=== PATIENT | female | born 1970 | race Caucasian/White ===

== ENCOUNTER 2025-05-15 10:01 | Emergency (ER) | payer OTHER ==
[~2025-05-15] VITALS: Ht 162.6 cm; Wt 106.3 kg
[2025-05-15 10:05] VITALS: PULSE 88; O2SAT 99
--- NOTE | 2025-05-15 10:25 | RADIOLOGY REPORT ---
CHEST RADIOGRAPH INDICATION: rib pain three weeks right side TECHNIQUE: DI CHEST,SINGLE VIEW Comparison: None FINDINGS: The cardiac silhouette is unremarkable. The lungs demonstrate no pulmonary airspace consolidation. The pulmonary vasculature is unremarkable. There is no pleural effusion. There is no pneumothorax. IMPRESSION: No pulmonary airspace consolidation.
[2025-05-15 12:23] VITALS: BP 162/109
[2025-05-15 12:34] VITALS: RESP 8
[2025-05-15] MEDS: HYDROcodone/acetaminophen 10/325mg tab PO ONE (12:34)
[2025-05-15] MEDS: ketorolac trometh 30MG/ML vial 30 MG/ML VIAL IM ONE (12:34)
--- NOTE | 2025-05-15 12:55 | Physician Documentation ---
History of Present Illness ~ Chief Complaint: Rib pain Stated Complaint: RIB PAIN Time Seen by MD: 12:10 Primary Medical Doctor: Franklin arenas Source: patient Mode of Arrival: POV, Ambulatory Exam Limitations: no limitations HPI 54-year-old female with complaints of continued right rib pain after a fall while intoxicated 3 weeks ago continued pain with deep breathing and movement as well as palpation. Tetanus within 5 Years?: No Allergies: Coded Allergies: Penicillins (Unverified Allergy, Severe, anaphylaxis, 05/15/25) Sulfa (Sulfonamide Antibiotics) (Unverified Allergy, Severe, anaphylaxis, 05/15/25) bacitracin (Unverified Allergy, Intermediate, vaginal swelling, 05/15/25) Uncoded Allergies: PENCILLINS (Allergy, Severe, anaphylaxis, 05/15/25) Active Prescriptions See Medication Reconciliation Form. Past Medical History Past Medical History: No Pertinent History Past Surgical History: noncontributory Lives with: Family Lives In: Home Occupation: employed Review of Systems All Other Systems at this time: Reviewed and Negative Respiratory: Reports: see HPI Physical Exam Vital Signs: RN Vital Signs have been reviewed: Yes, Temperature: 98.7, Source: Oral, Heart Rate: 88, Respiratory Rate: 8, BP: 162/109, Pulse Oximetry: 99, Weight: 106.300 Oxygen Flow Rate: 0 Physical Exam General: Alert, no apparent distress. HEENT: moist mucous membranes. Neck: Full range of motion. Respiratory: No respiratory distress speaking in full sentences clear to auscultation Chest: No accessory muscle use. Tenderness to the right lower ribs no obvious deformity normal expansion Cardiovascular: Appears well perfused Neurologic: Oriented x4. Psychiatric: Normal mood and affect. Skin: Normal color, warm and dry. No edema, no ecchymosis. Progress Results/Orders Results/Orders Orders - LAURA PIERCE MANAGER M[facility] HEALTH Ribs,Unilat (05/15/25 ) Completed Orders - LAURA PIERCE MANAGER [facility]ENTAL HEALTH Ketorolac Trometh 30mg/Ml Vial (Toradol (05/15/25 12:20) Hydrocodone/Apap 10/325 ([place] 10/325mg (05/15/25 12:20) Ribs,Unilat (05/15/25 ) Medications Received in ER Medications (Trade) Dose Ordered Sig/Jeremy Route PRN Reason Start Time Stop Time Status Last Admin Dose Admin (Toradol inj. 30mg/ml) 30 mg ONCE ONCE IM 05/15/25 12:20 05/15/25 12:21 DC 05/15/25 12:34 30 MG ([place] 10/325mg tab) 1 tab ONCE ONCE PO 05/15/25 12:20 05/15/25 12:21 DC 05/15/25 12:34 1 TAB Vital Signs 05/15/25 05/15/25 05/15/25 05/15/25 10:05 10:55 12:23 12:34 Temp 98.7 Pulse 88 Resp 16 8 B/P (MAP) 215/116 162/109 (126) Pulse Ox 99 O2 Flow Rate 0 05/15/25 12:34 Resp 16 Medical Decision Making Additional information obtaine: N/A Findings X-rays were unremarkable for any significant findings including fractures as a differential from a fall 3 weeks ago lungs appear clear with no obvious infiltrates or signs of pneumonia due to natural splinting and shallow breathing. Medications for pain control incentive spirometer and follow up with primary care Differential Dx:Considerations: Include: Chest wall contusion, Pulmonary contusion, Rib fracture, Other Departure Time of Disposition: 12:52 Disposition: 01 HOME / SELF CARE / HOMELESS Impression: Primary Impression: Rib pain Condition: Stable Discharge Instructions: Rib Contusion Additional Instructions: No fractures were noted on x-rays. This is likely a rib contusion or bruising use lidocaine patches and pain medications to help while making sure to cough and deep breathe. Follow up with primary care in 1 week Referrals: NO PRIMARY CARE PROVIDER (PCP) Prescriptions Ibuprofen (Ibu) 800 Mg Tablet 1 TAB PO Q8H for 7 Days, #21 TAB 0 Refills Prov: LAURA PIERCE NP 05/15/25 Hydrocodone Bit/Acetaminophen 5/325 MG ([place] 5/325 MG) 5 Mg/325 Mg Tablet 1 TAB PO Q12H PRN PRN for pain for 5 Days, #10 TAB Prov: LAURA PIERCE NP 05/15/25 Lidocaine (Lidocaine) 5 % Adh..patch 1 PATCH TOP DAILY for 30 Days, #30 PATCH 0 Refills Prov: LAURA PIERCE NP 05/15/25 Education Educated: Patient Educated regarding: diagnosis, treatment, need for follow up Signature Scribe Signature: No scribe Attestation: The note accurately reflects work and decisions made by me.Laura CATHERINE 05/15/25 12:58 LAURA PIERCE NP May 15, 2025 12:55
[2025-05-15] MEDS ORDERED: LIDO700A47 TOP (12:56)
[2025-05-15] MEDS ORDERED: HYDR-3965 PO (12:56)
[2025-05-15] MEDS ORDERED: IBUP-864 PO (12:56)
--- NOTE | 2025-05-15 13:06 | RADIOLOGY REPORT ---
[facility] EXAMINATION: DI RIBS,UNILAT INDICATION: Fall, injury, pain COMPARISON: DI CHEST,SINGLE VIEW on DOS: 05/15/25 TECHNIQUE: Frontal view of the chest and 3 views of the right ribs history FINDINGS: No focal consolidation, pleural effusion or significant pneumothorax. Normal cardiomediastinal silhouette. No displaced right rib fracture. Subtle cortical irregularity at the inferior spine of the scapula seen on 1 view only. This most likely represents artifact versus less likely subtle nondisplaced fracture. Clinical correlation advised. IMPRESSION: No acute cardiopulmonary disease. No displaced right rib fracture. Subtle cortical irregularity at the inferior spine of the scapula seen on 1 view only. This most likely represents artifact versus less likely subtle nondisplaced fracture. Clinical correlation advised.
[2025-05-15 13:21] VITALS: TEMP 98.7
== END 2025-05-15 13:22 | disposition home or self-care (01) ==
LOC: ER 10:02
DX: R07.89 Other chest pain (principal); Z88.0 Allergy status to penicillin; Z88.2 Allergy status to sulfonamides; Z88.8 Allergy status to other drugs, medicaments and biological substances
CPT/HCPCS: 71045; 71100; 96372; 99284; J1885